=== PATIENT | male | born 1980 | race Caucasian/White ===

== ENCOUNTER 2021-05-14 13:46 | Emergency (ER) | payer OTHER ==
[2021-05-14 13:51] LABS: Glucose,Whole Blood 165 mg/dL (75-99)
[2021-05-14] MEDS ORDERED: DIPH,PERTUS(ACELL)TETVAC-LF 0.5 ML VIAL IM ONE (13:52)
[2021-05-14 13:59] VITALS: BP 144/96; PULSE 95; RESP 22; TEMP 99
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
[2021-05-14 14:18] LABS: Basophils # (A) 0.1 k/uL (0-0.2); Basophils % (A) 1 %; Eosinophils # (A) 0.3 k/uL (0-0.7); Eosinophils % (A) 4 %; HGB 14.6 gm/dL (13.0-17.5); Lymphocytes # (A) 2.2 k/uL (1.0-4.8); Lymphocytes % (A) 33 %; MCHC 34.7 g/dL (31.0-37.0); MCV 89.5 fL (80.0-100.0); Mean Platelet Volume 8.6; Monocytes # (A) 0.5 k/uL (0-1.0); Monocytes % (A) 7 %; Neutrophils # (A) 3.6 k/uL (1.3-7.7); Neutrophils % (A) 53 %; Platelet Count 293 k/uL (150-450); RBC 4.69 m/uL (4.30-5.90); RDW 12.8 % (11.5-15.5); WBC 6.8 k/uL (3.8-10.6)
[2021-05-14] MEDS ORDERED: fentaNYL (PF) 50 MCG/ML 2 ML AMP IV STA (14:19)
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
[2021-05-14 14:27] LABS: ALT 183 U/L (4-49); AST 136 U/L (17-59); African American GFR (CKD) >90 (>60 ml/min/1.73 sqM); Albumin 4.2 g/dL (3.5-5.0); Alcohol <10 mg/dL; Alkaline Phosphatase 87 U/L (38-126); Anion Gap 7 mmol/L; Blood Urea Nitrogen 17 mg/dL (9-20); Calcium 9.3 mg/dL (8.4-10.2); Carbon Dioxide 24 mmol/L (22-30); Chloride 105 mmol/L (98-107); Creatine Kinase 263 U/L (55-170); Glucose 146 mg/dL (74-99); Non-African American GFR(CKD) >90 (>60 ml/min/1.73 sqM); Potassium 4.2 mmol/L (3.5-5.1); Sodium 136 mmol/L (137-145); Total Bilirubin 0.6 mg/dL (0.2-1.3); Total Protein 6.7 g/dL (6.3-8.2)
[2021-05-14 14:29] LABS: Partial Thromboplastin Time 22.1 sec (22.0-30.0); Prothrombin Time 10.8 sec (9.0-12.0)
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
[2021-05-14] MEDS ORDERED: fentaNYL (PF) 50 MCG/ML 2 ML AMP IVP PRN (15:48)
== END 2021-05-14 16:41 | disposition other institution (70) ==
LOC: EC 13:46
DX: S06.0X9A Concussion with loss of consciousness of unspecified duration, initial encounter (principal); S02.31XA Fracture of orbital floor, right side, initial encounter for closed fracture; S72.301A Unspecified fracture of shaft of right femur, initial encounter for closed fracture; S61.412A Laceration without foreign body of left hand, initial encounter; S61.411A Laceration without foreign body of right hand, initial encounter; F12.90 Cannabis use, unspecified, uncomplicated; R40.2412 Glasgow coma scale score 13-15, at arrival to emergency department; V43.52XA Car driver injured in collision with other type car in traffic accident, initial encounter; Y92.410 Unspecified street and highway as the place of occurrence of the external cause
CPT/HCPCS: 36415; 93005; 86900; 86901; 80053; 82550; 83605; 84484; 85025; 85610; 85730; 86850; 80320; 72170; 73552; 71045; 72125; 70486; 70450; 71260; 74177; 90715; 90471; 96374; 96375 ×2; 99291; J0690; J3010; Q9967

== ENCOUNTER 2021-06-20 09:06 | Emergency (ER) | payer OTHER ==
[2021-06-20 09:35] VITALS: BP 123/76; PULSE 81; RESP 18; TEMP 98.2
--- NOTE | 2021-06-20 10:56 | XR ---
EXAMINATION TYPE: XR thoracic spine 2V DATE OF EXAM: 06/20/2021 CLINICAL HISTORY: pain TECHNIQUE: Frontal, lateral, and swimmer's view of thoracic spine are obtained. COMPARISON: None. FINDINGS: Thoracic spine show satisfactory alignment without evidence of acute fracture or dislocatio n. Vertebral body heights are preserved. Disc spaces are well preserved. Visualized ribs are unrem arkable. IMPRESSION: No acute fracture or dislocation is seen in the thoracic spine. ICD 10 NO FRACTURE, INIT IAL EVALUATION
--- NOTE | 2021-06-20 10:56 | XR ---
EXAMINATION TYPE: XR cervical spine limited DATE OF EXAM: 06/20/2021 CLINICAL HISTORY: pain TECHNIQUE: 3 views of the cervical spine are submitted. COMPARISON: None. FINDINGS: There is satisfactory in alignment without evidence of acute fracture or dislocation. The pre-vertebral soft tissue appears within normal limits.Disc spaces are well preserved. The C1-C2 art iculation is unremarkable on the open mouth view. IMPRESSION: No acute fracture or dislocation is seen in the cervical spine.
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
== END 2021-06-20 11:58 | disposition home or self-care (01) ==
LOC: EC 09:06
DX: M54.2 Cervicalgia (principal); M54.6 Pain in thoracic spine; F12.90 Cannabis use, unspecified, uncomplicated; Z88.5 Allergy status to narcotic agent
CPT/HCPCS: 72040; 72070; 99283

== ENCOUNTER → 2021-12-06 | Outpatient (CLI) | payer OTHER | END | disposition home or self-care (01) | LOC: LABWHC1 13:24 | PROVIDERS: ATTEND Physician Assistant | DX: S72.351D Displaced comminuted fracture of shaft of right femur, subsequent encounter for closed fracture with routine healing (principal); Y99.9 Unspecified external cause status | CPT/HCPCS: 36415; 82306 ==

== ENCOUNTER → 2022-05-15 | Outpatient (CLI) | payer OTHER ==
--- NOTE | 2022-05-15 17:20 | CT ---
CT RIGHT LOWER EXTREMITY WITHOUT CONTRAST INDICATION: Femoral shaft fracture. COMPARISON: Right femur radiograph 05/14/2021. TECHNIQUE: Multiple axial images were obtained through the right lower extremity. 3-D reconstruction s were also performed. Coronal and sagittal reformats were performed. No contrast given. One or mor e CT dose reduction strategies were utilized during this examination. Total DLP administered 1080 mGy cm. FINDINGS: Post surgical changes with intramedullary belia with transverse fixation screws involving the right fem ur. Hardware is in intact without surrounding lucency. There is a obliquely oriented fracture line wi th surrounding callus formation through the right femoral midshaft. No evidence for dislocation. No f at stranding is identified or soft tissue edema. The remaining soft tissues are unremarkable. Visua lized pelvis is unremarkable. IMPRESSION Right femoral midshaft fracture line is still evident with callus formation suggesting nonunion fract ure. Right femoral hardware is intact.
== END | disposition home or self-care (01) ==
LOC: RADCTMAIN 13:44
PROVIDERS: ATTEND Orthopaedic Surgery Orthopaedic Trauma
DX: S72.351D Displaced comminuted fracture of shaft of right femur, subsequent encounter for closed fracture with routine healing (principal)

== ENCOUNTER → 2023-06-22 | Outpatient (CLI) | payer OTHER ==
--- NOTE | 2023-06-22 10:30 | MR ---
EXAMINATION TYPE: MR cervical spine wo con DATE OF EXAM: 06/22/2023 10:14 AM CLINICAL INDICATION:Male, 43 years old with history of M54.2 NECK PAIN; PHH, Neck pain, keith, crunching feeling on spine near base of neck, numbness in arms COMPARISON: None TECHNIQUE: Multi planar, multi sequence imaging was performed utilizing: T1-weighted, T2-weighted, an d turbo inversion recovery imaging of the cervical spine. IV Contrast: None FINDINGS: Alignment: The cervical vertebral bodies have preserved heights. Alignment is within normal limits gi yung patient positioning. Bones: Bone signal is within normal limits. No abnormal bone marrow edema on inversion recovery seque nces. Cord: The spinal cord is unremarkable with regards to their signal intensity and morphology. Discs: Intervertebral disc signal is maintained. C2-C3: No significant disc pathology. The spinal canal is patent. No neural foraminal stenosis. C3-C4: No significant disc pathology. The spinal canal is patent. No neural foraminal stenosis. C4-C5: No significant disc pathology. The spinal canal is patent. Bilateral facet and uncovertebral joint arthropathy are present with mild bilateral neural foraminal stenosis. C5-C6: No significant disc pathology. The spinal canal is patent. Bilateral facet and uncovertebral joint arthropathy are present with mild left neural foraminal stenosis. The right neural foramen is p atent. C6-C7: No significant disc pathology. The spinal canal is patent. No neural foraminal stenosis. C7-T1: No significant disc pathology. The spinal canal is patent. No neural foraminal stenosis. Other: Mild paranasal sinus mucosal thickening partially visualized. IMPRESSION: 1. No evidence for disc herniation or significant spinal canal stenosis. 2. Minimal disc degeneration with associated osteoarthritic changes are significant neural foraminal stenosis..
== END | disposition home or self-care (01) ==
LOC: RADMRIMAIN 09:13
PROVIDERS: ATTEND Orthopaedic Surgery
DX: M47.812 Spondylosis without myelopathy or radiculopathy, cervical region (principal); M99.71 Connective tissue and disc stenosis of intervertebral foramina of cervical region
CPT/HCPCS: 72141